=== PATIENT | female | born 1945 | race Two or more races ===

== ENCOUNTER 2020-11-18 08:34 | Inpatient (IN) ==
--- NOTE | 2020-10-29 10:07 | Anesthesiology Consultation ---
Date of Service October 29, 2020 Assessment & Plan (1) Encounter for pre-operative examination: Chart Review Chart Review: Acceptable Risk for Surgery (pending preop Covid test and DOS PRP/EKG ) and Patient NOT seen in Pre Admission Testing -Will order PRP (not done preoperatively) and repeat EKG for DOS Per nursing assessment 10/28/20, pt returned for [employer] on 10/20/20. Drove- stayed in [place]- no large crowds. Was around only family members- all vaccinated. Patient is vaccinated for Covid. No known Covid positive contacts or Covid related symptoms. No known Covid infection in the past 90 days. Preop Covid testing 11/02/20= will await results. (Covid test done 13 days after travel). History Surgery Operation Date: 11/04/20 07:00 Proposed Procedures p Right Reverse Total Shoulder Arthroplasty - Flavio Castillo M.D. Height/Weight Height: 5 ft 5 in Weight: 63.503 kg Allergies Allergy/AdvReac Type Severity Reaction Status Date / Time codeine Allergy Intermediate Hives Verified 10/28/20 15:37 oxycodone Allergy Intermediate Hives Verified 10/28/20 15:36 Medications Home Medications Medication Instructions Recorded Confirmed Last Taken acetaminophen 325 mg tablet 650 mg PO TID 10/28/20 10/28/20 Unknown (Tylenol) alendronate 70 mg tablet (Fosamax) 70 mg PO MONTHLY 10/28/20 10/28/20 Unknown atorvastatin 20 mg tablet 10 mg PO HS 10/28/20 10/28/20 Unknown calcium carbonate 600 mg (1,500 1 tab PO BID 10/28/20 10/28/20 Unknown mg)-vitamin D3 200 unit tablet (Calcium 600 + D(3)) cholecalciferol (vitamin D3) 125 125 mcg PO QAM 10/28/20 10/28/20 Unknown mcg (5,000 unit) tablet (Vitamin D3) cyanocobalamin (vitamin B-12) 500 500 mcg PO 3XWK 10/28/20 10/28/20 Unknown mcg tablet cyclosporine 0.05 % eye drops in a 1 drp OPHTHALMIC (EYE) Q12H 10/28/20 10/28/20 Unknown dropperette (Restasis) losartan 25 mg tablet 25 mg PO QAM 10/28/20 10/28/20 Unknown potassium chloride 20 mEq 20 meq PO BID 10/28/20 10/28/20 Unknown tablet,extended release vitamin B complex 1 tab PO QAM 10/28/20 10/28/20 Unknown Past Medical History Medical History (Updated 10/29/20 @ 10:05 by Andria Berg PA-C) Anemia History of skin cancer with removal from face Hyperlipidemia Hypertension Migraine on occasion Osteoarthritis Osteoporosis Slow to wake up after anesthesia Past Surgical History Surgical History (Updated 10/28/20 @ 15:51 by Toya Ruiz RN) History of appendectomy History of bilateral tubal ligation History of cataract surgery bilat History of colonoscopy History of dilatation and curettage History of tooth extraction Hx of shoulder surgery left/right Social History Smoking Status: Former smoker Do You Dip or Chew Tobacco: No Smoking End Date: 10 yrs ago Hx Alcohol Use: Yes Alcohol type: beer and wine alcohol intake frequency: 0-2 drinks per day Hx Substance Use: No substance use type: does not use Testing Laboratory Results 10/22/20= WBC: 6.07 H/H: 11.5/33.7 (anemia per PMH) PLATELETS: 239 PT: 11.3 PTT: 27.1 INR: 0.99 UA: Trace leukocytes, 50 protein URINE CULTURE: No growth Electrocardiogram Date: 10/22/20 SR at 84bpm. Moderate ST depression. (Discussed with Dr. Terry- did speak with patient on 10/29/20- patient denies any recent chest pain or chest pressure. Mild OLIVARES- can do three flights of stairs with mild OLIVARES (chronic and unchanged). One flight of stairs no SOB. Risk factors only age, HTN, hyperlipidemia. ST depression minimal but difficult to fully interpret on faxed EKG- will repeat EKG DOS) Chest X-Ray Date: 10/22/20 Findings: + NAD Lung hyperinflation may represent good inspiratory effect or underlying ob structive lung disease/COPD.
--- NOTE | 2020-11-17 12:36 | History & Physical Report ---
Date of Service November 17, 2020 Assessment & Plan (1) Right rotator cuff tear arthropathy: Plan: She has a massive, retracted, full-thickness recurrent rotator cuff tear after previous attempted repair, now with worsening fatty atrophy of the rotator cuff muscle bellies, proximal migration humeral head, and glenohumeral joint arthritis. This is all consistent with rotator cuff tear arthropathy. I advised her that her only viable surgical treatment option at this point is a reverse total shoulder arthroplasty. I would not recommend any repeat attempt at rotator cuff repair. We discussed initial conservative treatment with a steroid injection, especially since she has not tried this yet. She declined and really wants this definitively treated. I do think this is reasonable. Risks, benefits, and alternatives of surgery were explained in detail. The s urgical procedure, as well as postoperative recovery and rehabilitation, was also explained in detail. Risks include bleeding; infection; damage to surrounding structures such as nerves, blood vessels, and tendons that run in the area; persistent pain or stiffness; hardware failure; dislocation; brachial plexus palsy; blood clots; or need for further surgery. The patient understands all of this and wishes to proceed with surgery. Preoperative workup was completed today, and informed consent was obtained. History of Present Illness Chief Complaint: Recurrent right shoulder pain and weakness Primary Care Provider: NO PCP Ms. Vásquez is a 75-year-old [id number] female who is referred to me for further evaluation of recurrent right shoulder pain and weakness after previous right shoulder arthroscopy by Dr. Crowley. Previous operative report was reviewed. She underwent a right shoulder arthroscopy with subacromial decompression, rotator cuff repair, and debridement of a 20% biceps tendon tear on 01/22/2020. She feels like she was doing fairly well after surgery until about May of this year. She had sudden onset of pain, weakness, and inability to raise her arm around that time without any obvious injury or exacerbating event. This has persisted over the last 3 months. The pain is quite severe and is waking her up at night. It is interfering with her activities of daily living. She went through extensive physical therapy without improvement. She has not improved with ibuprofen, Tylenol, and Aspercreme. She has not had any steroid injections. Allergies Allergy/AdvReac Type Severity Reaction Status Date / Time codeine Allergy Intermediate Hives Verified 10/28/20 15:37 oxycodone Allergy Intermediate Hives Verified 10/28/20 15:36 Home Medications Medication Instructions Recorded Confirmed Type acetaminophen 325 mg tablet 650 mg PO TID 10/28/20 10/28/20 History (Tylenol) alendronate 70 mg tablet (Fosamax) 70 mg PO MONTHLY 10/28/20 10/28/20 History atorvastatin 20 mg tablet 10 mg PO HS 10/28/20 10/28/20 History calcium carbonate 600 mg (1,500 1 tab PO BID 10/28/20 10/28/20 History mg)-vitamin D3 200 unit tablet (Calcium 600 + D(3)) cholecalciferol (vitamin D3) 125 125 mcg PO QAM 10/28/20 10/28/20 History mcg (5,000 unit) tablet (Vitamin D3) cyanocobalamin (vitamin B-12) 500 500 mcg PO 3XWK 10/28/20 10/28/20 History mcg tablet cyclosporine 0.05 % eye drops in a 1 drp OPHTHALMIC (EYE) Q12H 10/28/20 10/28/20 History dropperette (Restasis) losartan 25 mg tablet 25 mg PO QAM 10/28/20 10/28/20 History potassium chloride 20 mEq 20 meq PO BID 10/28/20 10/28/20 History tablet,extended release vitamin B complex 1 tab PO QAM 10/28/20 10/28/20 History Past Med/Surg History Medical History (Updated 11/17/20 @ 12:36 by Flavio Castillo M.D.) Anemia History of skin cancer with removal from face Hyperlipidemia Hypertension Migraine on occasion Osteoarthritis Osteoporosis Slow to wake up after anesthesia Surgical History (Updated 10/28/20 @ 15:51 by Toya Ruiz RN) History of appendectomy History of bilateral tubal ligation History of cataract surgery bilat History of colonoscopy History of dilatation and curettage History of tooth extraction Hx of shoulder surgery left/right Social History Smoking Status: Former smoker Second Hand Exposure: No; Hx Alcohol Use: Yes Alcohol type: beer and wine Hx Substance Use: No Preferred Language: Armenian Communication Ability: Effective Cat Tender Required: No Beliefs That Will Affect Care: None Current Living Situation: Spouse Feels Safe at Home: Yes Assistive Devices: Denture - Upper, Denture - Lower and Glasses Physical Exam Physical Exam: Examination of the right shoulder shows severe limitation in active shoulder range of motion due to pain, with palpable crepitus during motion. Rotator cuff strength is globally weak. She can only actively abduct up to about 45 degrees with the right shoulder, but passively I can take her all the way up to about 170 degrees. Results & Data ([facility]) Diagnostic Findings New x-rays of the right shoulder show moderate glenohumeral joint arthritis, especially visible on the axillary view with posterior osteophyte formation. She does have proximal migration of the humeral head. Remodeling changes of the greater tuberosity consistent with rotator cuff tear arthropathy. Right shoulder MRI from August 06, 2020 was reviewed and compared to preoperative MRI in February 2019. Both pre and postoperative MRIs show a massive, retracted, full-thickness rotator cuff tear with retraction of the rotator cuff tendon to the level of the glenoid rim. There is severe fatty atrophy of multiple rotator cuff muscle bellies, worst in the supraspinatus; preoperatively it looks like about 60% fatty atrophy, and postoperatively about 70%.
[~2020-11-18 08:34] MED LIST: ACETAMINOPHEN 500 MG TAB PO SCH; BUPIVACAINE 0.5 % 5 MG/1 ML PF 10ML VIAL ONE; CeleBREX 200 MG CAP PO SCH; FAMOTIDINE 20 MG TAB PO SCH; GABAPENTIN 300 MG CAP PO SCH; LR 15ML/HR IV SCH; TRANEXAMIC ACID 1,000 MG **IV Pre-op IV SCH; ceFAZolin 2000MG 2,000 MG/15 ML SYR IV SCH
[2020-11-18] MEDS ORDERED: fentaNYL citrate 100 MCG/2 ML VIAL IV PRN (09:07)
[2020-11-18] MEDS ORDERED: ONDANSETRON INJ 2 MG/ML 2 ML VIAL IV PRN ×2 (09:07→13:44)
[2020-11-18] MEDS ORDERED: ePHEDrine sulfate 50 MG/ML AMP IV PRN (09:07)
[2020-11-18] MEDS ORDERED: MEPERIDINE HCL 25 MG/ML CARP/VIAL IV PRN (09:07)
[2020-11-18] MEDS ORDERED: LABETALOL HCL IV 5 MG/ML 20ML IV PRN (09:07)
[2020-11-18] MEDS ORDERED: PHENYLEPHRINE 100MCG/ML 5ML SYR IV PRN (09:07)
[2020-11-18] MEDS ORDERED: ATROPINE SULFATE 0.1 MG/ML 10ML SYR IV PRN (09:07)
[2020-11-18 09:20] LABS: Calcium 9.1 mg/dl (8.5-10.1); Creatinine Clr Calc Pharmacy 60.8 ml/min; Est GFR (Non-African American) 81.1 ml/min; Potassium 3.3 mmol/L (3.5-5.1)
[2020-11-18] MEDS ORDERED: MIDAZOLAM HCL 1 MG/ML 2ML VIAL ONE (09:56)
[2020-11-18] MEDS ORDERED: DEXAMETHASONE SOD INJ 4 MG/ML VIAL ONE (09:56)
[2020-11-18] MEDS ORDERED: PROPOFOL IV EMULSION 10 MG/ML 20 ML VIAL IV ONE (09:56)
[2020-11-18] MEDS ORDERED: ONDANSETRON INJ 2 MG/ML 2 ML VIAL ONE (09:56)
[2020-11-18] MEDS ORDERED: LIDOCAINE 2% 2 ML VIAL/AMP(20MG/ML) INFIL ONE (09:56)
[2020-11-18] MEDS ORDERED: fentaNYL citrate 100 MCG/2 ML VIAL ONE (09:56)
[2020-11-18] MEDS ORDERED: FAMOTIDINE 20 MG TAB ONE (10:05)
[2020-11-18] MEDS ORDERED: CeleBREX 200 MG CAP ONE (10:05)
[2020-11-18] MEDS ORDERED: TRANEXAMIC ACID / 0.7% NACL 1000MG/100ML BAG IV ONE (10:05)
[2020-11-18] MEDS ORDERED: GABAPENTIN 300 MG CAP ONE (10:05)
[2020-11-18] MEDS ORDERED: ACETAMINOPHEN 500 MG TAB ONE (10:05)
--- NOTE | 2020-11-18 10:24 | History & Physical Bridge Note ---
Date of Service November 18, 2020 History & Physical Bridge Note I have examined the patient, reviewed the History & Physical and in the interval since the performance of the History & Physical I have noted the following changes of clinical significance: no changes noted
[2020-11-18] MEDS ORDERED: PHENYLEPHRINE HCL 10 MG/ML VIAL ONE (12:17)
--- NOTE | 2020-11-18 12:33 | Post Operative Brief Note ---
Immediate Post Op Note v1 Date of Surgery November 18, 2020 Pre & Post Diagnosis Operation Date: 11/18/20 10:05 Pre-Op Diagnosis: Right rotator cuff tear arthropathy. Post-Op Diagnosis: Right rotator cuff tear arthropathy. I identified the patient and participated in the time-out.: Yes Procedure Operation Date: 11/18/20 10:05 Actual Procedures p Right Reverse Total Shoulder Arthroplasty(Right) - Flavio Castillo M.D. Surgeon Flavio Castillo Metal Organ Pipe Maker Gonzalo Bangura PA-C Estimated Blood Loss 75 Findings Consistent with Post-Op Diagnosis
--- NOTE | 2020-11-18 12:37 | Operative Report ---
Post Operative Report Pre & Post Diagnosis Operation Date: 11/18/20 10:05 Pre-Op Diagnosis: Right shoulder rotator cuff tear arthropathy Post-Op Diagnosis: Right shoulder rotator cuff tear arthropathy I identified the patient and participated in the time-out.: Yes Procedure Operation Date: 11/18/20 10:05 Actual Procedures Right reverse Total Shoulder Arthroplasty (43058) Open biceps tenodesis (24213) - Flavio Castillo M.D. Surgeon Flavio Castillo Bundle Cutter Gonzalo Bangura PA-C Estimated Blood Loss 75 Findings Consistent with Post-Op Diagnosis Specimens None Drains None Anesthesia Type General Regional Complications none Disposition Disposition: Recovery Room Indications Ms. Vásquez is a 75-year-old female with severe right shoulder pain and weakness. History, clinical exam, and imaging were consistent with the above diagnosis. Risks, benefits, and alternatives of surgery were explained in detail. The patient understood all this and wished to proceed. Description of Procedure Components Implanted: Tornier Reverse Total Shoulder implants Perform glenoid baseplate: 25mm, 15 degree full wedge with 6.5mm central screw and 5.0mm peripheral screws Glenosphere: 36mm standard Ascend Flex humeral stem: 4B Standard length (78mm) Humeral tray: 3.5mm offset, +0mm thickness Polyethylene insert: 36mm, +6mm thickness Patient was identified in the preoperative holding area. Operative extremity was marked. Regional blockade was given by the Anesthesia Staff. Patient was then brought back to the operating room, and general anesthesia was induced without complication. Appropriate weight-based dose of Ancef was infused intravenously for antibiotic prophylaxis. The patient was then placed in the beachchair position. Right arm was then prepped and draped in a standard sterile fashion using Chlorhexidine prep. A standard deltopectoral incision was made through the skin and subcutaneous tissue. The cephalic vein was identified and retracted medially. Small branches to the deltoid were coagulated as necessary. The clavipectoral fascia was then incised and the subdeltoid space was opened. The rotator cuff was found to be deficient, and I therefore decided to perform a reverse total shoulder arthroplasty as planned preoperatively. The biceps tendon was identified within the bicipital groove and tenodesed at the superior border of the pectoralis tendon with #2 FiberWire suture. The biceps tendon was then divided proximal to the tenodesis site and the rotator interval was opened. The proximal portion of the biceps tendon was excised. The remaining subscapularis tendon was elevated subperiosteally off of the lesser tuberosity. The glenohumeral joint was then dislocated, and large osteophytes were debrided with a ronguer. The humeral head cut was then made in the appropriate inclination and version using the cutting guide. The intramedullary canal of the humerus was then opened with a canal finder. The humeral canal was then sequentially broached to the appropriate size. A protective cap was then placed on top of the humeral trial. I then turned my attention to the glenoid. The proximal stump of the biceps tendon was excised, along with the labrum circumferentially around the glenoid. The Blueprint drill guide was then positioned on the glenoid, and the guidepin was then inserted. The 15 degree angled reamer was then inserted over the guidepin and an reamed to an appropriate depth. The central screw hole was drilled, and appropriate length 6.5mm central screw was selected. The baseplate was then implanted into place according to our preoperative Blueprint plan by tightening down the central screw. A peripheral 5mm nonlocking screw was placed superiorly first for additional compression of the baseplate, and then additional locking 5 mm peripheral screws were placed to complete fixation of the baseplate. Glenosphere was then impacted and secured. A trial humeral tray and insert were placed on the trial humeral stem, and a trial reduction was carried out. Once I achieved acceptable joint stability and range of motion with the trial implants, the final humeral implants were assembled on the back table and then impacted into position. I then took the shoulder through full range of motion to ensure good stability and acceptable motion. Wound was then copiously irrigated with sterile saline. Deep fascia was closed with 0 V-lock suture. Subcutaneous tissue was closed with 2-0 V-lock, and skin was closed with 3-0 V-lock. Skin was then sealed with Dermabond. Sterile dressings were then applied with a waterproof silver-impregnated dressing, and the arm was placed into a sling. The patient was awakened from anesthesia and taken to the Post Anesthesia Care Unit in stable condition. There were no immediate complications from the procedure. I was present and scrubbed for the entire procedure, with the exception of final skin closure and dressing application. Due to the complex nature of the procedure, the entire surgery was performed with the operational assistance of Gonzalo Bangura PA-C. The legal administrative assistant, under direct supervision, was involved in the performance of all aspects of the surgical procedure including patient positioning, tissue retraction, hemostasis, wound closure, and dressing application. I attest to the content of the Intraoperative Record and any orders documented therein. Any exceptions are noted below.
--- NOTE | 2020-11-18 13:05 | XRay Report ---
XR shoulder RT min 2V routine CLINICAL HISTORY: Post shoulder surgery COMPARISON: None FINDINGS: Alignment of the reverse total right shoulder arthroplasty is anatomic. No periprosthetic fracture or unexpected radiopaque foreign bodies. IMPRESSION: Expected findings following reverse total right shoulder arthroplasty. ACT 112: Negative or not required by law. Electronically signed by: Justin Joseph M.D. 11/18/2020 1:03 PM
[2020-11-18] MEDS ORDERED: MAGNESIUM HYDROXIDE SUSP 30 ML UDC PO PRN (13:44)
[2020-11-18] MEDS ORDERED: METOCLOPRAMIDE HCL INJ 5 MG/ML 2 ML VIAL IV PRN (13:44)
[2020-11-18] MEDS ORDERED: traMADol HCL 50 MG TABLET PO PRN (13:44)
[2020-11-18] MEDS ORDERED: NALOXONE HCL 0.4 MG/1 ML VIAL/CARP IV PRN (13:44)
[2020-11-18] MEDS ORDERED: bisacodyL 10 MG SUPP PR PRN (13:44)
[2020-11-18] MEDS: SODIUM CHLORIDE 0.9% 1000ML 1,000 ML IV SCH (14:00)
--- NOTE | 2020-11-18 15:36 | Anesthesiology Progress Note ---
Date of Service November 18, 2020 Anesthesia Post Procedure Vital Signs Vital Signs: Temp Pulse Pulse Resp BP Pulse Ox 11/18/20 13:48 36.7 C 76 18 154/72 H 94 11/18/20 13:30 75 16 145/76 H 93 11/18/20 13:20 36.6 C 73 17 146/74 H 94 11/18/20 13:10 81 18 118/72 92 11/18/20 13:00 78 19 133/74 100 11/18/20 12:50 76 20 129/98 100 11/18/20 12:40 36.1 C L 75 16 155/81 H 98 11/18/20 09:22 36.7 C 94 H 20 188/92 H 97 Transfer of Care Handoff Completed per policy Notes Mental Status: alert / awake / arousable and participated in evaluation Patient Amnestic to Procedure: Yes Nausea / Vomiting: adequately controlled Pain: adequately controlled Airway Patency, RR, SpO2: stable & adequate BP & HR: stable & adequate Hydration State: stable & adequate Anesthetic Complications: no major complications apparent and Pt Satisfied with anesthetic care
[2020-11-18] MEDS: ACETAMINOPHEN 500 MG TAB PO SCH ×2 (15:49→21:55)
--- NOTE | 2020-11-18 16:11 | Orthopedic Progress Note ---
Date of Service November 18, 2020 Assessment & Plan (1) Right rotator cuff tear arthropathy: Plan: Postoperative day 0 status post right reverse total shoulder arthroplasty -Ancef x24 hours -DVT prophylaxis with aspirin 325 mg daily. -May do shoulder range of motion as tolerated, but no resisted elbow flexion or resisted forearm supination -Likely discharge home tomorrow. Follow-up in clinic in 10 to 14 days. Admission and Anticipated Discharge Date Admission Date: November 18, 2020 Subjective Postop check Patient resting comfortably. She denies any pain in her right shoulder. Her nerve block is just starting to wear off, and she can wiggle her fingers. Physical Exam Physical Exam: Right shoulder dressings are clean, dry, intact. She does have finger motion, but not thumb extension or wrist extension yet. Results & Data ([facility]) Vital Signs (Past 12 Hours) Vital Signs Temp Pulse Pulse Resp BP Pulse Ox 11/18/20 15:45 36.5 C 83 18 138/72 91 11/18/20 14:15 36.5 C 75 18 145/73 H 93 11/18/20 13:48 36.7 C 76 18 154/72 H 94 11/18/20 13:30 75 16 145/76 H 93 11/18/20 13:20 36.6 C 73 17 146/74 H 94 11/18/20 13:10 81 18 118/72 92 11/18/20 13:00 78 19 133/74 100 11/18/20 12:50 76 20 129/98 100 11/18/20 12:40 36.1 C L 75 16 155/81 H 98 11/18/20 09:22 36.7 C 94 H 20 188/92 H 97 Diagnostic Findings Postoperative x-rays were reviewed. Reverse total shoulder arthroplasty components in good position.
[2020-11-18] MEDS: IBUPROFEN 600 MG TAB PO SCH ×2 (17:08→21:55)
[2020-11-18] MEDS: ceFAZolin 1000MG 1,000 MG/7.5 ML SYR IV SCH (18:28)
[2020-11-18] MEDS ORDERED: ATORVASTATIN 10 MG TAB PO SCH (21:00)
[2020-11-18] MEDS ORDERED: SENNA 8.6 MG TAB PO SCH (21:00)
[2020-11-18] MEDS: cycloSPORINE (RESTASIS) OP SCH (21:53)
[2020-11-18] MEDS: CALCIUM 600MG + VIT D 400 IU TAB PO SCH (21:53)
[2020-11-18] MEDS: POTASSIUM CHLORIDE CRTAB 20 MEQ TABCR PO SCH (21:54)
[2020-11-18] MEDS: DOCUSATE SODIUM 100 MG CAP PO SCH (21:54)
[2020-11-19] MEDS: SODIUM CHLORIDE 0.9% 1000ML 1,000 ML IV SCH (01:59)
[2020-11-19] MEDS: ceFAZolin 1000MG 1,000 MG/7.5 ML SYR IV SCH (02:27)
[2020-11-19] MEDS: IBUPROFEN 600 MG TAB PO SCH ×2 (05:08→11:32)
[2020-11-19] MEDS: ACETAMINOPHEN 500 MG TAB PO SCH (05:09)
[2020-11-19 05:26] LABS: Basophils # (auto) 0.01 K/uL (0-0.2); Basophils % (auto) 0.1 %; Hematocrit (blood only) 27.1 % (37-47); Hemoglobin 9.1 g/dL (12.0-16.0); Immature Granulocytes # (auto) 0.02 K/uL (0.00-0.02); Immature Granulocytes % (auto) 0.2 %; Lymphocytes # (auto) 0.96 K/uL (1.2-3.4); Mean Corpuscular Hemoglobin 37.3 pg (25-34); Mean Corpuscular Hgb Conc 33.6 g/dL (32-36); Mean Corpuscular Volume 111.1 fL (80-100); Mean Platelet Volume 9.2 fL (7.4-10.4); Monocytes # (auto) 0.89 K/uL (0.11-0.59); Monocytes % (auto) 10.2 %; Neutrophils # (auto) 6.87 K/uL (1.4-6.5); Neutrophils % (auto) 78.5 %; Platelet Count 193 K/uL (130-400); RDW Coefficient of Variation 13.1 % (11.5-14.5); RDW Standard Deviation 53.2 fL (36.4-46.3); Red Blood Count 2.44 M/uL (4.2-5.4); White Blood Count 8.75 K/uL (4.8-10.8)
[2020-11-19 05:45] LABS: Macrocytosis Present
[2020-11-19 05:55] LABS: BUN Creatinine Ratio 12.7 (10-20); Calcium 8.2 mg/dl (8.5-10.1); Creatinine Clr Calc Pharmacy 44.9 ml/min; Est GFR (African American) 65.1 ml/min; Est GFR (Non-African American) 56.1 ml/min; Potassium 3.6 mmol/L (3.5-5.1)
--- NOTE | 2020-11-19 06:14 | Electrocardiogram Report ---
Test Reason : Blood Pressure : / mmHG Vent. Rate : 095 BPM Atrial Rate : 095 BPM P-R Int : 162 ms QRS Dur : 078 ms QT Int : 398 ms P-R-T Axes : 008 018 -09 degrees QTc Int : 500 ms Normal sinus rhythm Nonspecific ST and T wave abnormality Prolonged QT Abnormal ECG No previous ECGs available Confirmed by Jake Draper ([id number]) on 11/19/2020 6:14:05 AM Referred By: Flavio Castillo Confirmed By:Jake Draper
--- NOTE | 2020-11-19 08:16 | Orthopedic Progress Note ---
Date of Service November 19, 2020 Assessment & Plan (1) Right rotator cuff tear arthropathy: Plan: Postoperative day 1 status post right reverse total shoulder arthroplasty -Ancef x24 hours, then discontinue -DVT prophylaxis with aspirin 325 mg daily. -May do shoulder range of motion as tolerated, but no resisted elbow flexion or resisted forearm supination -Discharge to home today after PT/OT. Follow-up in clinic in 10 to 14 days. Admission and Anticipated Discharge Date Admission Date: November 18, 2020 Subjective Postop day 1 Patient up and ambulating in her room. Complained that she had minimal sleep last night. She also states that she did have some pain last night that required pain medication but this morning she is doing fine. Pain is controlled currently. No other complaints at this time. Physical Exam Physical Exam: Silverlon dressing is clean, dry, and intact. She has good range of motion at the elbow and wrist. She does have good range of motion of her fingers although she has some continued decrease sensation in the thumb and forefinger with a little bit of weakness. Cap refill is less than 2 seconds. She is wearing the sling correctly. Results & Data ([facility]) Vital Signs (Past 12 Hours) Vital Signs Temp Pulse Resp BP Pulse Ox 11/19/20 07:29 36.8 C 78 16 163/79 H 92 11/19/20 03:54 155/78 H 11/19/20 03:41 36.8 C 85 18 171/74 H 92 11/18/20 22:59 36.9 C 91 H 20 144/79 H 94 Laboratory Results Laboratory Results WBC 8.75 K/uL (4.8-10.8) 11/19/20 05:05 RBC 2.44 M/uL (4.2-5.4) L 11/19/20 05:05 Hgb 9.1 g/dL (12.0-16.0) L 11/19/20 05:05 Hct 27.1 % (37-47) L 11/19/20 05:05 MCV 111.1 fL (80-100) H 11/19/20 05:05 MCH 37.3 pg (25-34) H 11/19/20 05:05 MCHC 33.6 g/dL (32-36) 11/19/20 05:05 RDW Std Deviation 53.2 fL (36.4-46.3) H 11/19/20 05:05 RDW Coeff of Noy 13.1 % (11.5-14.5) 11/19/20 05:05 Plt Count 193 K/uL (130-400) 11/19/20 05:05 MPV 9.2 fL (7.4-10.4) 11/19/20 05:05 Immature Gran % (Auto) 0.2 % 11/19/20 05:05 Neut % (Auto) 78.5 % 11/19/20 05:05 Lymph % (Auto) 11.0 % 11/19/20 05:05 [place] % (Auto) 10.2 % 11/19/20 05:05 Eos % (Auto) 0.0 % 11/19/20 05:05 Baso % (Auto) 0.1 % 11/19/20 05:05 Neut # (Auto) 6.87 K/uL (1.4-6.5) H 11/19/20 05:05 Lymph # (Auto) 0.96 K/uL (1.2-3.4) L 11/19/20 05:05 [place] # (Auto) 0.89 K/uL (0.11-0.59) H 11/19/20 05:05 Eos # (Auto) 0.00 K/uL (0-0.5) 11/19/20 05:05 Baso # (Auto) 0.01 K/uL (0-0.2) 11/19/20 05:05 Immature Gran # (Auto) 0.02 K/uL (0.00-0.02) 11/19/20 05:05 Macrocytosis Present 11/19/20 05:05 Sodium 143 mmol/L (136-145) 11/19/20 05:05 Potassium 3.6 mmol/L (3.5-5.1) 11/19/20 05:05 Chloride 113 mmol/L (98-107) H 11/19/20 05:05 Carbon Dioxide 25 mmol/L (21-32) 11/19/20 05:05 Anion Gap 5.0 (3-11) 11/19/20 05:05 BUN 13 mg/dl (7-18) 11/19/20 05:05 Creatinine 0.99 mg/dl (0.6-1.2) 11/19/20 05:05 Est Cr Clr Drug Dosing 44.9 ml/min 11/19/20 05:05 Est GFR ( Amer) 65.1 ml/min 11/19/20 05:05 Est GFR (Non-Af Amer) 56.1 ml/min 11/19/20 05:05 BUN/Creatinine Ratio 12.7 (10-20) 11/19/20 05:05 Glucose 108 mg/dl (70-99) H 11/19/20 05:05 Calcium 8.2 mg/dl (8.5-10.1) L 11/19/20 05:05 COVID-19 Eval Order Covid19 IDNow [facility] 11/18/20 09:08 Hepatitis C Ab Screen Neg (Neg) 11/18/20 08:54 SARS-CoV-2, RNA, NAAT NEGATIVE (NEGATIVE) 11/18/20 09:08 Blood Type O Positive 11/18/20 08:54 Antibody Screen NEGATIVE 11/18/20 08:54 Impressions Shoulder X-Ray 11/18/20 12:49 XR shoulder RT min 2V routine CLINICAL HISTORY: Post shoulder surgery COMPARISON: None FINDINGS: Alignment of the reverse total right shoulder arthroplasty is anatomic. No periprosthetic fracture or unexpected radiopaque foreign bodies. IMPRESSION: Expected findings following reverse total right shoulder arthroplasty. ACT 112: Negative or not required by law. Electronically signed by: Justin Joseph M.D. 11/18/2020 1:03 PM
[2020-11-19] MEDS: CALCIUM 600MG + VIT D 400 IU TAB PO SCH (08:51)
[2020-11-19] MEDS: POTASSIUM CHLORIDE CRTAB 20 MEQ TABCR PO SCH (08:51)
[2020-11-19] MEDS: DOCUSATE SODIUM 100 MG CAP PO SCH (08:51)
[2020-11-19] MEDS: cycloSPORINE (RESTASIS) OP SCH (08:52)
[2020-11-19] MEDS ORDERED: MULTIVITAMIN TAB PO SCH (09:00)
[2020-11-19] MEDS ORDERED: CYANOCOBALAMIN 500 MCG TABLET (VITAMIN B-12) PO SCH (09:00)
[2020-11-19] MEDS ORDERED: LOSARTAN POTASSIUM 25 MG TAB PO SCH (09:00)
[2020-11-19] MEDS ORDERED: ASPIRIN 325 MG ECTAB PO SCH (09:00)
[2020-11-19] MEDS ORDERED: CHOLECALCIFEROL 1,000 UNITS 25 MCG TAB PO SCH (09:00)
[2020-11-19] MEDS ORDERED: VITAMIN B COMPLEX TAB PO SCH (09:00)
--- NOTE | 2020-11-19 17:33 | Discharge Summary ---
Date of Service November 19, 2020 Admission HPI Per Admitting Provider Ms. Vásquez is a 75-year-old [id number] female who is referred to me for further evaluation of recurrent right shoulder pain and weakness after previous right shoulder arthroscopy by Dr. Crowley. Previous operative report was reviewed. She underwent a right shoulder arthroscopy with subacromial decompression, rotator cuff repair, and debridement of a 20% biceps tendon tear on 01/22/2020. She feels like she was doing fairly well after surgery until about May of this year. She had sudden onset of pain, weakness, and inability to raise her arm around that time without any obvious injury or exacerbating event. This has persisted over the last 3 months. The pain is quite severe and is waking her up at night. It is interfering with her activities of daily living. She went through extensive physical therapy without improvement. She has not improved with ibuprofen, Tylenol, and Aspercreme. She has not had any steroid injections. Principal Diagnosis Right shoulder rotator cuff tear arthropathy Discharge Data Allergies Allergy/AdvReac Type Severity Reaction Status Date / Time codeine Allergy Intermediate Hives Verified 11/18/20 09:11 oxycodone Allergy Intermediate Hives Verified 11/18/20 09:11 Procedures Performed Operation Date: 11/18/20 10:05 Actual Procedures p Right Reverse Total Shoulder Arthroplasty(Right) - Flavio Castillo M.D. Ordered Studies 11/18/20 05:00 US - OR guided needle placemen Routine Hospital Course (1) Right rotator cuff tear arthropathy: Patient underwent a right reverse total shoulder arthroplasty on the date of admission. Patient tolerated the procedure well and was transferred up to the general orthopedic surgery floor in stable condition. Perioperative antibiotic coverage was initiated, and continued for 24 hours postoperatively. DVT prophylaxis was initiated consisting of SCDs and aspirin 325 mg daily. Perioperative pain control regimen was transitioned to strictly oral pain medications by postoperative day 1. On postoperative day 1 the patient was doing very well. Pain was well controlled, and patient was mobilizing well with therapy. Patient was determined be safe and ready for discharge to home. Total Time Total Time Spent Total Time Spent (In Minutes): 15 Discharge Plan Discharge Items Patient Disposition: Home - Home Health Services Reason For Visit: Unspecified Rotator Cuff Tear or Rupture of Right Discharge Diagnosis: Right shoulder rotator cuff tear arthropathy Activity: Per Instructions section Weightbearing: Right non-weightbearing Non-emergency contact: Surgeon Call non-emergency contact if: your pain is not controlled, your temperature is above 101.5, your wound has increased redness and your wound has increased drainage Follow-up/Referrals: Flavio Csatillo M.D. [Physician] - PCP,NO [Primary Care Provider] - Diet: Regular Addtl Attending Provider Instructions: Things to Watch Out For -Go to the Emergency Room if you have sudden onset of nausea, vomiting, chest pain, shortness of breath, or uncontrollable pain. -Call the clinic or go to the Emergency Room if you have a sudden increase in the amount of wound drainage or the drainage becomes thick, yellow or green, or foul-smelling. -For routine questions, call the clinic at [phone] during regular business hours (8am-5pm). For urgent issues after regular business hours, you may call the clinic to be connected to the on-call physician. Dressings -A special waterproof, silver-impregnated dressing was placed on your shoulder. Keep this dressing in place for 1 week after surgery. You may shower with the waterproof dressing in place, but do not soak the dressing in the bathtub or pool. -One week after surgery, you may remove the waterproof dressing. You may continue to shower, and let water run BRIEFLY over the incision, but do not soak the incision in the bathtub or pool for 2 weeks. You may also gently clean the incision with mild soap and water; pat the incision dry after cleaning-do not rub the incision. Apply a new dressing daily thereafter. Shoulder Exercises -Keep your operative shoulder in the sling for comfort, except as detailed below. -You should come out of the sling 4-5 times a day for passive pendulum exercises: lean over and swing your arm in a circular pattern. -You should also do active-assisted forward flexion exercises: use your opposite hand to lift your operative arm forward to 90 degrees. -Do not flex your elbow (curl motion) or supinate your forearm (rotating palm up) against resistance. -Do not use your arm to push yourself up out of bed or up from a seated position. Ice Pack -You may use an ice pack for pain relief. You should use it 20-30 minutes at a time. Place a towel between the ice pack and your skin to prevent frostbite. -You should use the ice pack fairly regularly for the first 1-2 weeks after surgery to help reduce pain and inflammation. -About 2 weeks after your surgery, you should start using heat to loosen up your shoulder prior to doing your stretching exercises, then use the cooling sleeve after your exercises are complete to reduce swelling and pain. Pain Medicines -Your prescriptions for pain medications have already been sent to the pharmacy on file at [facility] [place]. -You have been prescribed an anti-inflammatory (Motrin/ibuprofen) and a non-na rcotic pain medicine (Tylenol/acetaminophen). These are your primary pain medications. Take them each every 6 hours as instructed. It is recommended that you stagger these medicines every 3 hours (i.e. take ibuprofen at 8:00 am, then acetaminophen at 11:00 am, then ibuprofen at 2:00 pm, etc) -DO NOT take any additional anti-inflammatories (Advil, Aleve/naproxen, Mobic/meloxicam, Celebrex) or any additional Tylenol/acetaminophen products with these prescribed medications. -You have also been prescribed an additional narcotic pain medication (oxycodone). Take this medicine ONLY for breakthrough pain not controlled by the ibuprofen and acetaminophen. -Do not drive or operate heavy machinery while taking the narcotic medication. -Common side effects of narcotic pain medicines include itching, nausea, constipation, and feeling "loopy". However, if you develop a rash or hives, stop taking the medicine and call the clinic. If you develop swelling in your throat or difficulty breathing, go to the Emergency Room or call 911 IMMEDIATELY. -You may take over the counter stool softeners if needed for constipation. Aspirin -Take a full strength (325mg) aspirin every day for 4 weeks (28 days) to prevent blood clots. -If you were taking a baby aspirin (81mg) prior to surgery, you may resume taking this 81mg dose after you complete the 28-day course of the 325mg strength dose; do not take the 325mg dose in addition to your 81mg dose. -Be aware that you will bruise easier while taking Aspirin; this is normal. However, if you develop a significantly large area of swelling after an injury, or have a cut that will not stop bleeding, call the clinic or go to the Emergency Room immediately. Pending Studies at Discharge: No Stand-Alone Forms: My [email or web address], Opioid Pain Management, Smoking Cessation Medications and DC Order Prescriptions: Continued vitamin B complex Tablet Extended Release 1 tab PO QAM RF: 0 atorvastatin 20 mg Tablet 10 mg PO HS RF: 0 alendronate [Fosamax] 70 mg Tablet 70 mg PO MONTHLY RF: 0 calcium carbonate-vitamin D3 [Calcium 600 + D(3)] 600 mg(1,500mg) -200 unit Tablet 1 tab PO BID RF: 0 cyanocobalamin (vitamin B-12) 500 mcg Tablet 500 mcg PO 3XWK RF: 0 losartan 25 mg Tablet 25 mg PO QAM RF: 0 Restasis 0.05 % Dropperette 1 drp OPHTHALMIC (EYE) Q12H RF: 0 cholecalciferol (vitamin D3) [Vitamin D3] 125 mcg (5,000 unit) Tablet 125 mcg PO QAM RF: 0 potassium chloride 20 mEq Tablet Extended Release 20 meq PO BID RF: 0 Discontinued acetaminophen [Tylenol] 325 mg Tablet 650 mg PO TID RF: 0 Discharge Orders: Discharge Order (Routine); Ordered 11/19/20 Ordered By: Mehran Chinchilla/Other Patient Handouts: DVT Post Op Prevention Admission Data Admit Date/Time: 11/18/20 12:49 Attending Provider: Flavio Castillo Admit Provider: Flavio Castillo Primary Care Provider: PCP,NO Other Interventions: Discharge Summary Assessment (RN) Last Done: 11/19/20 10:11
[2020-12-17] MEDS ORDERED: ALENDRONATE SODIUM 70 MG TAB PO SCH (08:00)
== END 2020-11-19 13:20 | disposition home health service (06) | DRG 483 ==
LOC: ASU 08:34 → 3E 12:49
DX: Z88.5 Allergy status to narcotic agent; I10 Essential (primary) hypertension; M25.511 Pain in right shoulder; M75.101 Unspecified rotator cuff tear or rupture of right shoulder, not specified as traumatic; Z87.891 Personal history of nicotine dependence; E78.5 Hyperlipidemia, unspecified